=== PATIENT | female | born 1955 | race Two or more races ===

== ENCOUNTER → 2016-09-25 | Outpatient (REF) | payer OTHER ==
[2016-09-26 12:17] LABS: ADD MANUAL DIFFER YES; MEAN CORPUSCULAR HEMOGLOBIN 30.9 pg (27.0-33.0); MEAN CORPUSCULAR HGB CONC 34.8 g/dl (32.0-36.5); MEAN CORPUSCULAR VOLUME 88.8 fl (80.0-96.0); PLATELET COUNT, AUTOMATED 329 k/mm3 (150-450); RED CELL DISTRIBUTION WIDTH 12.7 % (11.5-14.5); WHITE BLOOD COUNT 11.6 K/mm3 (4.0-10.0)
[2016-09-26 12:19] LABS: ALBUMIN 4.4 GM/DL (3.2-5.2); BILIRUBIN,TOTAL 0.4 MG/DL (0.2-1.0); CALCIUM LEVEL 9.9 MG/DL (8.8-10.2); CREATININE FOR GFR 2.14 MG/DL (0.55-1.02); FREE T4 1.07 NG/DL (0.76-1.46); GLOMERULAR FILTRATION RATE 24.8 (>45); POTASSIUM SERUM 3.5 MEQ/L (3.5-5.1); TOTAL PROTEIN 8.8 GM/DL (6.4-8.2)
[2016-09-26 12:58] LABS: EOSINOPHILS 1 % (0-5)
== END ==
LOC: M SFHCCAPE 14:52 → M CLY 14:55 → M SFHCCLAY 14:56
PROVIDERS: ATTEND Physician Assistant
DX: R63.0 Anorexia (principal); R53.83 Other fatigue

== ENCOUNTER → 2016-09-29 | Outpatient (REF) | payer OTHER ==
[2016-09-29 19:25] LABS: BASO % 0.5 % (0.0-1.0); EOS # 0.1 K/mm3 (0.0-0.50); EOS % 0.8 % (0.0-3.0); LARGE UNSTAINED CELL # 0.1 K/mm3 (0.0-0.4); LARGE UNSTAINED CELL % 1.5 % (0.0-4.0); LYMPH # 1.6 K/mm3 (1.5-4.5); LYMPH % 19.8 % (24.0-44.0); MEAN CORPUSCULAR HEMOGLOBIN 31.4 pg (27.0-33.0); MEAN CORPUSCULAR VOLUME 89.6 fl (80.0-96.0); MONO # 0.3 K/mm3 (0.0-0.8); MONO % 4.5 % (0.0-5.0); NEUTROPHILS # 5.6 K/mm3 (1.8-7.7); NEUTROPHILS % 72.9 % (36.0-66.0); PLATELET COUNT, AUTOMATED 308 k/mm3 (150-450); RED CELL DISTRIBUTION WIDTH 12.6 % (11.5-14.5); WHITE BLOOD COUNT 7.7 K/mm3 (4.0-10.0)
[2016-09-29 21:36] LABS: ALBUMIN 4.4 GM/DL (3.2-5.2); ALBUMIN/GLOBULIN RATIO 1.05 (1.00-1.93); BILIRUBIN,TOTAL 0.5 MG/DL (0.2-1.0); CALCIUM LEVEL 9.9 MG/DL (8.8-10.2); CREATININE FOR GFR 1.79 MG/DL (0.55-1.02); GLOMERULAR FILTRATION RATE 30.4 (>45); POTASSIUM SERUM 3.9 MEQ/L (3.5-5.1); TOTAL PROTEIN 8.6 GM/DL (6.4-8.2)
== END ==
LOC: M SFHCCAPE 09:50
PROVIDERS: ATTEND Physician Assistant
DX: R79.89 Other specified abnormal findings of blood chemistry (principal)

== ENCOUNTER → 2016-09-29 | Outpatient (CLI) | payer BC, OTHER ==
--- NOTE | 2016-09-29 11:07 | REP ---
Clinical: Cough . Comparison: None . Technique: PA and lateral. Findings: The mediastinum and cardiac silhouette are normal. The lung [place] demonstrate minimal linear fibroatelectatic changes in the left lower lobe without acute consolidation, effusion, or pneumothorax. The skeletal structures are intact and normal. Impression: 1. Trace linear fibroatelectatic changes in the left lower lobe.
== END ==
LOC: M CLY 10:46
PROVIDERS: ATTEND Physician Assistant
DX: R91.8 Other nonspecific abnormal finding of lung field (principal)

== ENCOUNTER → 2016-10-01 | Outpatient (CLI) | payer BC, OTHER ==
--- NOTE | 2016-10-01 13:45 | REP ---
Clinical: Elevated creatinine levels. Technique: Real time galvez scale ultrasound examination using curved array transducer. Findings: The bilateral kidneys are essentially normal in contour, size, echogenicity and reniform shape without hydronephrosis, nephrolithiasis, mass or perinephric stranding. Right kidney measures 10.2 x 4.4 x 4.8 cm without cyst. Left kidney measures 10.0 x 4.2 x 4.6 cm and includes 1.5 cm lower pole cyst. Bladder is incompletely distended and grossly normal in appearance. Fatty infiltration to the liver noted. Impression: 1. Incidental 1.5 cm left renal cyst. Otherwise normal appearance to the kidneys. 2. Fatty infiltration to the liver. Signed by Angel Carrero MD 10/01/2016 01:37 P
== END ==
LOC: M RAD 13:12
PROVIDERS: ATTEND Physician Assistant
DX: N28.1 Cyst of kidney, acquired (principal); K76.0 Fatty (change of) liver, not elsewhere classified

== ENCOUNTER → 2016-10-02 | Outpatient (REF) | payer OTHER ==
[2016-10-02 18:59] LABS: ALBUMIN 3.7 GM/DL (3.2-5.2); BILIRUBIN,TOTAL 0.4 MG/DL (0.2-1.0); CALCIUM LEVEL 9.4 MG/DL (8.8-10.2); CREATININE FOR GFR 1.26 MG/DL (0.55-1.02); GLOMERULAR FILTRATION RATE 45.7 (>45); POTASSIUM SERUM 3.9 MEQ/L (3.5-5.1); TOTAL PROTEIN 7.4 GM/DL (6.4-8.2)
== END ==
LOC: M SFHCCAPE 09:56
PROVIDERS: ATTEND Physician Assistant
DX: R79.89 Other specified abnormal findings of blood chemistry (principal)